=== PATIENT | female | born 1960 | race Caucasian/White ===

== ENCOUNTER → 2020-11-27 | Day surgery (SDC) | payer OTHER ==
[~2020-11-27] MED LIST: CALCIUM + VITA1 EACH PO; DICLOFENAC SODI75 MG PO; FARXIGA5 MG PO; GLUCOTROL5 MG PO; LIPITOR40 MG PO; MAG-OXIDE 400M400 MG PO; METFORMIN HCL500 MG PO; OMEPRAZOLE40 MG PO; PERCOCET 5-3251 EACH PO; TROSPIUM CHLORI20 MG PO; TRULICITY3 MG/0.5 M SC; ZESTRIL2.5 MG PO; ZYRTEC10 M3 PO
[2020-11-27 07:58] LABS: HCT 35.5 % (37.0-47.0); HGB 11.7 g/dl (12.5-16.0); MCH 29.5 pg (25.0-31.0); MCV 89.6 fL (78.0-100.0); MPV 10.4 fL (6.0-9.5); RBC 3.96 M/uL (4.20-5.40); RDW 13.8 % (11.5-14.0); WBC 6.4 K/uL (4.0-10.5)
[2020-11-27 08:20] LABS: BUN/CREAT RATIO (CALC) 13.8 RATIO; CREATININE 0.87 mg/dL (0.51-0.95)
== END | disposition home or self-care (01) ==
LOC: FAS 07:02
PROVIDERS: Anesthesiology; Legal Medicine
DX: M75.111 Incomplete rotator cuff tear or rupture of right shoulder, not specified as traumatic (principal); M19.011 Primary osteoarthritis, right shoulder; M75.41 Impingement syndrome of right shoulder; E11.9 Type 2 diabetes mellitus without complications; K21.9 Gastro-esophageal reflux disease without esophagitis; Z20.822 Contact with and (suspected) exposure to COVID-19; Z79.84 Long term (current) use of oral hypoglycemic drugs; Z79.899 Other long term (current) drug therapy
CPT/HCPCS: 36415; 80048; 82962; 93005; C1713; J0171; J0690; J0735; J1100; J2250; J2405; J2704; J2795; J7120